=== PATIENT | female | born 1945 | race Caucasian/White ===

== ENCOUNTER 2017-01-07 03:19 | Inpatient (IN) | payer OTHER ==
[~2017-01-07] VITALS: Ht 157.5 cm; Wt 68.0 kg
[2017-01-07 03:19] VITALS: BP_SYST 148
[~2017-01-07 03:19] MED LIST: FOSAMAX
--- NOTE | 2017-01-07 03:34 | NUR ---
Patient to ER bed 8 to gown for evaluation. Side rails up. Report given to DORIS ALBERTO.
--- NOTE | 2017-01-07 03:50 | NUR ---
Patient is stable in bed. complains of left flank sharp pain starting at 0130 with nausea. Pain scale 8/10. No other complaints/injuries per patient or as noted. Will continue to monitor.
--- NOTE | 2017-01-07 03:56 | NUR ---
ER at bedside examining patient.
[2017-01-07] MEDS ORDERED: NACL 0.9% 1,000 ML IV ONE (04:00)
[2017-01-07] MEDS ORDERED: ONDANSETRON HCL 4 MG/2 ML VIAL IVP ONE (04:00)
[2017-01-07] MEDS ORDERED: MORPHINE 2 MG/ML INJ. SYRINGE IVP ONE (04:00)
--- NOTE | 2017-01-07 04:00 | NUR ---
# 18 gauge angiocath placed to R AC. Use of asceptic technique. Opsite placed over site. Blood return noted. Blood for lab drawn from site. Flushed with 10 cc of normal saline. No evidence of infiltration noted. Patient tolerated well.
[2017-01-07 04:22] LABS: ANION GAP 9 (5-15); CALCIUM 9.6 mg/dL (8.4-11.0); CHLORIDE 107 mmol/L (98-107); CREATININE 0.97 mg/dL (0.55-1.30); GLUCOSE 120 mg/dL (70-99); POTASSIUM 4.3 mmol/L (3.5-5.1); SODIUM SERUM 142 mmol/L (136-145); UREA NITROGEN, BLOOD 28 mg/dL (8-21)
[2017-01-07 04:29] LABS: BASOPHILS # (AUTO) 0.1 K/uL (0.0-0.2); BASOPHILS % (AUTO) 0.7 % (0.0-2.0); EOSINOPHILS # (AUTO) 0.1 K/uL (0.0-0.4); EOSINOPHILS % (AUTO) 1.4 % (0.0-4.0); HEMATOCRIT 44.7 % (36-48); LYMPHOCYTES # (AUTO) 2.9 K/uL (1.0-5.5); LYMPHOCYTES % (AUTO) 32.1 % (20.5-51.5); MEAN CORPUSCULAR HEMOGLOBIN 31 pg (27-31); MEAN CORPUSCULAR HGB CONC 34 % (32-36); MEAN CORPUSCULAR VOLUME 93 fL (79.0-98.0); MONOCYTES # (AUTO) 0.2 K/uL (0.0-1.0); MONOCYTES % (AUTO) 2.6 % (1.7-9.3); NEUTROPHILS # (AUTO) 5.8 K/uL (1.8-7.7); NEUTROPHILS % (AUTO) 63.2 % (40.0-70.0); PLATELET COUNT (AUTO) 305 K/uL (130-430); RED BLOOD CELL COUNT(AUTO) 4.82 MIL/uL (4.2-6.2); RED CELL DISTRIBUTION WIDTH 12.1 % (9.0-15.0); WHITE BLOOD COUNT (AUTO) 9.1 K/uL (4.8-10.8)
[2017-01-07 04:30] LABS: ALANINE AMINOTRANSFERASE 43 U/L (12-78); ALBUMIN 4.1 g/dL (3.4-4.8); ASPARTATE AMINOTRANSFERASE 37 U/L (10-37); LIPASE 154 U/L (73-393); TOTAL BILIRUBIN 0.4 mg/dL (0.0-1.0); TOTAL PROTEIN, SERUM 7.9 g/dL (6.4-8.3)
--- NOTE | 2017-01-07 04:58 | NUR ---
Patient is stable sitting up in bed talking to friend.
[2017-01-07 05:06] LABS: BILIRUBIN,URINE NEGATIVE (NEGATIVE); BLOOD, URINE 3+ (NEGATIVE); CLARITY/URINE CLEAR (CLEAR); COLOR,URINE YELLOW (YELLOW); GLUCOSE,URINE TRACE (NEGATIVE); KETONES,URINE NEGATIVE (NEGATIVE); LEUKOCYTE ESTERASE ,URINE NEGATIVE (NEGATIVE); NITRITE, URINE NEGATIVE (NEGATIVE); PROTEIN URINE NEGATIVE (NEGATIVE); UROBILINOGEN,URINE 0.2 (0.2-1.0)
[2017-01-07 05:20] LABS: BACTERIA,URINE None Seen /HPF (None Seen); RBC,URINE 20-50 /HPF (0-3); WBC,URINE NONE SEEN /HPF (0-3)
--- NOTE | 2017-01-07 06:15 | NUR ---
Patient is stable sitting up in bed. No complaints of any pain at this time.
--- NOTE | 2017-01-07 06:54 | NUR ---
Patient states she does not know the names of her medication but family will bring in her medication.
--- NOTE | 2017-01-07 07:04 | NUR ---
Admission Note Received patient from ER with diagnosis of KIDNEY STONES . Initial Plan of Care discussed-patient verbalized understanding. Family at bedside. Oriented to room, call light, pain management and safety.
--- NOTE | 2017-01-07 07:05 | NUR ---
Patient will be admitted to care of Dr. Douglas . Admitted to [facility]urg[facility]. Will go to room 131-a. Belongings list completed. Summary report printed. Report will be given at bedside to DOLLY Baldwin.
--- NOTE | 2017-01-07 07:18 | NUR ---
UROLOGY CONSULT Spoke with Camilla regarding request for consultation with Dr. Smith ([phone]) for reason: kidney stone.
[2017-01-07 07:19] VITALS: BP_SYST 122
--- NOTE | 2017-01-07 08:25 | NUR ---
Uro calls: has called for the consult and asked if patient NPO. Patient just eats breakfast. Read him a result of CT abdomen and pelvis. He has no order.
[2017-01-07] MEDS: NACL 0.9% 1,000 ML IV SCH ×2 (09:14→22:30)
[2017-01-07 09:42] LABS: INR 1.1 (0.8-1.2); PROTHROMBIN TIME 12.1 SECS (9.5-12.5)
--- NOTE | 2017-01-07 09:52 | NUR ---
RN Rounds: Pt sitting semi-fowlers in bed. No acute signs of distress noted. IV fluid infusing well to RUE with no redness or swelling noted to site. Call light in reach. Continue to monitor.
[2017-01-07] MEDS ORDERED: MORPHINE 2 MG/ML INJ. SYRINGE IVP PRN (10:45)
[2017-01-07] MEDS ORDERED: ONDANSETRON HCL 4 MG/2 ML VIAL IVP PRN (11:00)
--- NOTE | 2017-01-07 11:24 | NUR ---
Rounds: Pt laying flat in bed and sleeping. Breathing even and unlabored on room air. No acute signs of distress noted at this time. IV fluids infusing well to RUE with no redness or swelling noted to site. Call light in reach. Continue to monitor.
[2017-01-07 12:00] VITALS: BP_SYST 139
[2017-01-07] MEDS ORDERED: MELO15TA13 PO (13:22)
[2017-01-07] MEDS ORDERED: CYCL-10 PO (13:22)
[2017-01-07] MEDS ORDERED: SIMV10TA2 PO (13:22)
[2017-01-07] MEDS ORDERED: ESCI20TA PO (13:22)
--- NOTE | 2017-01-07 13:36 | NUR ---
Rounds: Pt sitting semi-fowlers in bed. No acute signs of distress noted. IV intact to RUE with no redness or swelling noted to site. Pt denies pain and nausea. Call light in reach. Continue to monitor pt closely.
--- NOTE | 2017-01-07 15:10 | NUR ---
Rounds: Pt sitting semi-fowlers in bed and sleeping. Pt breathing even and unlabored on room air. No acute signs of distress noted. IV intact to RUE. Call light in reach. Fall precautions in place. Continue to monitor.
[2017-01-07 16:00] VITALS: BP_SYST 114; BP_SYST 125
--- NOTE | 2017-01-07 17:48 | NUR ---
Rounds: Pt assisted up to bathroom and back to bed. IV intact to RUE with no redness or swelling noted to site. Call light in reach. Continue to monitor.
--- NOTE | 2017-01-07 18:18 | NUR ---
Closing Note: Pt sitting semi-fowlers in bed. No acute signs of distress noted at this time. IV intact to RUE and infusing fluids well. Pt breathing even and unlabored on room air. Call light in reach. Pt verbalizes understanding of NPO status after midnight in preparation for procedure tomorrow. No other needs noted at this time. All needs met throughout shift. Endorse plan of care to SHREYAS RN.
[2017-01-07 20:00] VITALS: BP_SYST 135
--- NOTE | 2017-01-07 20:04 | NUR ---
opening Note Patient is currently resting in bed. No complaints of flank or any pain at the present moment. IV is in the RAC 18g running NS@75. Bed is in low position call light is within reach. Will continue to monitor.
--- NOTE | 2017-01-08 00:30 | NUR ---
Rounds patient is resting in bed. No sings of distress noted. Call light is within reach,
[2017-01-08 00:34] VITALS: BP_SYST 126
--- NOTE | 2017-01-08 02:30 | NUR ---
Rounds Patient is sleeping in bed. Call light is within reach.
[2017-01-08 04:00] VITALS: BP_SYST 131
--- NOTE | 2017-01-08 06:30 | NUR ---
Closing Note patient is in stable condition. call light is within reach. Patient is due for cytoscopy today. Will give report to the oncoming nurse.
[2017-01-08 08:23] VITALS: BP_SYST 127
[2017-01-08] MEDS ORDERED: PANTOPRAZOLE GRANULES PACKET 40 MG PO SCH (09:00)
[2017-01-08] MEDS ORDERED: PANTOPRAZOLE GRANULES PACKET 40 MG GT SCH (09:00)
[2017-01-08] MEDS: NACL 0.9% 1,000 ML IV SCH (09:24)
[2017-01-08] MEDS ORDERED: IOHEXOL 0 ML IV ONE (10:46)
[2017-01-08] MEDS ORDERED: DEXAMETHASONE SOD PHOSPHATE 4 MG/ML VIAL IVP ONE (10:56)
[2017-01-08] MEDS ORDERED: LR 1,000 ML IV ONE (12:23)
[2017-01-08 12:30] VITALS: BP_SYST 107
[2017-01-08] MEDS ORDERED: DIPHENHYDRAMINE INJ 50 MG/ML VIAL IVP PRN (12:30)
[2017-01-08] MEDS ORDERED: NALBUPHINE HCL 10 MG/ML AMP IVP PRN (12:30)
[2017-01-08] MEDS ORDERED: ONDANSETRON HCL 4 MG/2 ML VIAL IVP PRN ×2 (12:30)
[2017-01-08] MEDS ORDERED: NALOXONE HCL 0.4 MG/ML AMP (NARCAN) IVP PRN (12:30)
[2017-01-08] MEDS ORDERED: ePHEDrine sulfate 50 MG/ML VIAL IVP PRN (12:30)
[2017-01-08] MEDS ORDERED: fentaNYL CITRATE/PF 100 MCG/2 ML AMP IVP PRN (12:30)
--- NOTE | 2017-01-08 12:30 | NUR ---
NOTE PATIENT RETURNED FROM SURGERY IN STABLE CONDITION WITH NO COMPLAINTS OF PAIN, NO NOTED DISTRESS, DISCOMFORT OR SOB. PATIENT WAS EDUCATED ON HOW TO USE THE IS AND RETURN DEMONSTRATION WAS PROVIDED BY THE PATIENT. CALL LIGHT IS WITHIN REACH AND WILL CONTINUE TO MONITOR.
[2017-01-08 16:32] VITALS: BP_SYST 127
--- NOTE | 2017-01-08 17:04 | NUR ---
OPENING NOTE/0800 RECEIVED REPORT FROM OFF GOING SHOW JUMPING INSTRUCTOR NURSE. PATIENT RESTING COMFORTABLY, NO COMPLAINTS OF PAIN, NAUSEA, OR VOMITING AT THIS TIME. PATIENT HAS NO NOTABLE SIGNS OF DISTRESS. PATIENTS BED IN LOWEST POSITION, CALL LIGHT WITHIN REACH, PATIENTS BED ALARM IS ON, AND 2 SIDE RAILS ARE UP. PATIENT BELONGINGS WITHIN REACH. WILL CONTINUE TO MONITOR FOR CHANGES IN STATUS. LATE CHARTING DUE TO PATIENT CARE.
--- NOTE | 2017-01-08 17:05 | NUR ---
1000 NOTE PATIENT RESTING COMFORTABLY, NO COMPLAINTS OF PAIN, NAUSEA, OR VOMITING AT THIS TIME. PATIENT HAS NO NOTABLE SIGNS OF DISTRESS. PATIENTS BED IN LOWEST POSITION, CALL LIGHT WITHIN REACH, PATIENTS BED ALARM IS ON, AND 2 SIDE RAILS ARE UP. PATIENT BELONGINGS WITHIN REACH. WILL CONTINUE TO MONITOR FOR CHANGES IN STATUS. PATIENTS CHART CHECKED, CONSENT SIGNED, TO BE GOING FOR PROCEDURE AT 1030. LATE CHARTING DUE TO PATIENT CARE.
--- NOTE | 2017-01-08 17:06 | NUR ---
1200 NOTE PATIENT IN PROCEDURE. WILL MONITOR WHEN PATIENT RETURNS TO UNIT.
--- NOTE | 2017-01-08 17:07 | NUR ---
1400 NOTE PATIENT RESTING COMFORTABLY, NO COMPLAINTS OF PAIN, NAUSEA, OR VOMITING AT THIS TIME. PATIENT HAS NO NOTABLE SIGNS OF DISTRESS. PATIENTS BED IN LOWEST POSITION, CALL LIGHT WITHIN REACH, PATIENTS BED ALARM IS ON, AND 2 SIDE RAILS ARE UP. PATIENT BELONGINGS WITHIN REACH. WILL CONTINUE TO MONITOR FOR CHANGES IN STATUS. LATE CHARTING DUE TO PATIENT CARE.
--- NOTE | 2017-01-08 17:07 | NUR ---
1600 NOTE PATIENT RESTING COMFORTABLY, NO COMPLAINTS OF PAIN, NAUSEA, OR VOMITING AT THIS TIME. PATIENT HAS NO NOTABLE SIGNS OF DISTRESS. PATIENTS BED IN LOWEST POSITION, CALL LIGHT WITHIN REACH, PATIENTS BED ALARM IS ON, AND 2 SIDE RAILS ARE UP. PATIENT BELONGINGS WITHIN REACH. WILL CONTINUE TO MONITOR FOR CHANGES IN STATUS. PATIENT AWAITING DISCHARGE. LATE CHARTING DUE TO PATIENT CARE.
[2017-01-08 17:53] VITALS: BP_SYST 127
[2017-01-08] MEDS ORDERED: PROPOFOL 200MG/ 20ML VIAL (DIPRIVAN) IV ONE (18:14)
[2017-01-08] MEDS ORDERED: NS IRRIG SOLN 1000 ML IR ONE (18:14)
[2017-01-08] MEDS ORDERED: METOCLOPRAMIDE HCL 10 MG/2 ML VIAL IVP ONE (18:14)
[2017-01-08] MEDS ORDERED: fentaNYL CITRATE 250 MCG/5 ML AMP IV ONE (18:14)
[2017-01-08] MEDS ORDERED: MIDAZOLAM HCL 5 MG/5 ML VIAL IVP ONE (18:14)
[2017-01-08] MEDS ORDERED: LEVOFLOXACIN 500 MG/D5W 100 ML PIGGYBACK IV ONE (18:14)
[2017-01-08] MEDS ORDERED: LR 1,000 ML IV.SOLN IV ONE (18:14)
[2017-01-08] MEDS ORDERED: KETOROLAC TROMETHAMINE 30 MG VIAL IVP ONE (18:14)
[2017-01-08] MEDS ORDERED: SEVOFLURANE 15 MIN GAS INH ONE (18:14)
--- NOTE | 2017-01-08 18:36 | NUR ---
1800 DISCHARGE NOTE PATIENT IS DISCHARGED. IV DISCONTINUED, BAND REMOVED. PATIENT IS IN STABLE CONDITION, AAOX4. PATIENT IS DRESSED AND ACCOMPANIED BY HER FRIEND. PATIENT WAS GIVEN DISCHARGE INSTRUCTIONS, GIVEN OPPORTUNITY TO ASK QUESTIONS. PATIENT VERBALIZED UNDERSTANDING OF INSTRUCTIONS. PATIENT LEFT WITH ALL BELONGINGS FROM THE ROOM. PATIENT WHEELED TO PERSONAL VEHICLE.
--- NOTE | 2017-01-10 13:36 | NUR ---
Discharge Follow Up Phone Call: SERVICES REP called and spoke with pt ([phone]). Pt states that she is doing well; pt's prescriptions have been filled; there are no questions regarding discharge or medication instructions; Sliver Chopper, Aliya, is in the process of scheduling pt's follow up appointment with the Urologist. Pt did not express any other needs or concerns and denied the need for additional follow up at this time. No further follow up phone calls required at this time.
== END 2017-01-08 18:15 | disposition home or self-care (01) | DRG 694 ==
LOC: SED 03:19 → SMU 06:44
PROVIDERS: ADMIT Internal Medicine; ATTEND Internal Medicine Hospice and Palliative Medicine
PROC: 0T778DZ Dilation of Left Ureter with Intraluminal Device, Via Natural or Artificial Opening Endoscopic (ICD-10-PCS; principal; 2017-01-08 11:00)
DX: N13.2 Hydronephrosis with renal and ureteral calculous obstruction (principal); Z90.49 Acquired absence of other specified parts of digestive tract; Z90.710 Acquired absence of both cervix and uterus
CPT/HCPCS: 36415; 71020-TC; 76000; 80053; 81000-TC; 83690-TC; 84484; 85025; 85610-TC; 85730-TC; 87081; 93005; 96361; 96374; 96375; 99285; C1769; C2625; J1100; J1885; J1956; J2250; J2270; J2405; J2704; J2765; J3010; J7030; J7120; Q9967